=== PATIENT | female | born 1975 | race African-American/Black ===

== ENCOUNTER 2018-07-10 09:44 | Emergency (ER) | payer SELFPAY ==
[~2018-07-10] VITALS: Ht 157.5 cm; Wt 63.5 kg
--- NOTE | 2018-07-10 11:38 | PHYS DOC ---
Past Medical History Past Medical History: No Pertinent History Additional Past Medical Histor: borderline HTN Past Surgical History: , Tubal ligation Smoking: Cigarettes, 1 Pack Per Day Alcohol Use: None Drug Use: None Adult General Chief Complaint Chief Complaint: HYPERTENSION HPI HPI 42-year-old female presents to ER with complaints of mid chest tightness, shortness of air, and dizziness. Patient also has concerns of elevated blood pressure with history of borderline hypertension in the past with no daily medications. Patient reports symptoms have been ongoing for the past 1-1/2 weeks and has worsened over the past couple of days. Pt reports she has felt sweaty but uncertain if that was from hot flashes- denies fever. She reports chest tightness has been intermittent denies cough. She reports SOA but denies increase w/exertion or swelling in extremities. Pt denies any cold like sxs. Pt denies recent travel, control, or previous hx of PE/DVT. Pt denies any OTC meds for pain today. LMP 06/17/18. Review of Systems Review of Systems Constitutional: Denies fever or chills [] Eyes: Denies change in visual acuity, redness, or eye pain [] HENT: Denies nasal congestion or sore throat [] Respiratory: Denies cough or shortness of breath [] Cardiovascular: No additional information not addressed in HPI [] GI: Denies abdominal pain, nausea, vomiting, bloody stools or diarrhea [] : Denies dysuria or hematuria [] Musculoskeletal: Denies back pain or joint pain [] Integument: Denies rash or skin lesions [] Neurologic: Denies headache, focal weakness or sensory changes [] Endocrine: Denies polyuria or polydipsia [] All other systems were reviewed and found to be within normal limits, except as documented in this note. Current Medications Current Medications Current Medications Medications (Trade) Dose Ordered Sig/Ramona Start Time Stop Time Status Last Admin Dose Admin Albuterol/ Ipratropium (Duoneb) 3 ml 1X ONCE 07/10/18 12:00 07/10/18 12:01 DC 07/10/18 12:09 3 ML Prednisone (Prednisone) 40 mg 1X ONCE 07/10/18 13:15 07/10/18 13:16 DC Sodium Chloride 1,000 ml @ 1,000 mls/hr 1X ONCE 07/10/18 11:45 07/10/18 12:44 DC 07/10/18 11:46 1,000 MLS/HR Allergies Allergies Allergies Coded Allergies Type Severity Reaction Last Updated Verified No Known Drug Allergies 07/10/18 No Physical Exam Physical Exam Constitutional: Well developed, well nourished, no acute distress, non-toxic appearance. [] HENT: Normocephalic, atraumatic, bilateral ears normal, mucous membranes pink/ moist, no oral exudates, nose normal. [] Eyes: PERRLA, conjunctiva normal, no discharge. [] Neck: Normal range of motion, no tenderness, supple, no gross adenopathy Cardiovascular:Heart rate regular rhythm, no murmur [] Lungs & Thorax: Bilateral breath sounds bilateral with mild right upper lobe expiratory wheezes. Diminished air movement in bilateral bases. Respirations equal and nonlabored Abdomen: Bowel sounds normal, soft, no tenderness, no masses, no pulsatile masses. [] Skin: Warm, dry, no erythema, no rash. [] Back: No tenderness, no CVA tenderness. [] Extremities: No tenderness, no cyanosis, no clubbing, ROM intact, no edema. [] Neurologic: Alert and oriented X 3, normal motor function, normal sensory function, no focal deficits noted. [] Psychologic: Affect normal, judgement normal, mood normal. [] Current Patient Data Vital Signs Vital Signs Date Time Temp Pulse Resp B/P (MAP) Pulse Ox O2 Delivery O2 Flow Rate FiO2 07/10/18 12:09 100 Room Air 07/10/18 11:56 72 07/10/18 10:28 98.3 20 189/64 (105) 98.3 Lab Values Laboratory Tests Test 07/10/18 11:30 White Blood Count 12.0 x10^3/uL (4.0-11.0) H Red Blood Count 4.20 x10^6/uL (3.50-5.40) Hemoglobin 11.7 g/dL (12.0-15.5) L Hematocrit 35.4 % (36.0-47.0) L Mean Corpuscular Volume 84 fL (79-100) Mean Corpuscular Hemoglobin 28 pg (25-35) Mean Corpuscular Hemoglobin Concent 33 g/dL (31-37) Red Cell Distribution Width 16.9 % (11.5-14.5) H Platelet Count 305 x10^3/uL (140-400) Neutrophils (%) (Auto) 65 % (31-73) Lymphocytes (%) (Auto) 29 % (24-48) Monocytes (%) (Auto) 4 % (0-9) Eosinophils (%) (Auto) 2 % (0-3) Basophils (%) (Auto) 1 % (0-3) Neutrophils # (Auto) 7.8 x10^3uL (1.8-7.7) H Lymphocytes # (Auto) 3.5 x10^3/uL (1.0-4.8) Monocytes # (Auto) 0.5 x10^3/uL (0.0-1.1) Eosinophils # (Auto) 0.2 x10^3/uL (0.0-0.7) Basophils # (Auto) 0.1 x10^3/uL (0.0-0.2) Maternal Serum HCG Beta Subunit < 1 mIU/mL (0-5) Sodium Level 135 mmol/L (136-145) L Potassium Level 3.5 mmol/L (3.5-5.1) Chloride Level 102 mmol/L (98-107) Carbon Dioxide Level 29 mmol/L (21-32) Anion Gap 4 (6-14) L Blood Urea Nitrogen 7 mg/dL (7-20) Creatinine 0.8 mg/dL (0.6-1.0) Estimated GFR (Cockcroft-Gault) 95.6 BUN/Creatinine Ratio 9 (6-20) Glucose Level 93 mg/dL (70-99) Calcium Level 9.4 mg/dL (8.5-10.1) Magnesium Level 2.3 mg/dL (1.8-2.4) Total Bilirubin 0.3 mg/dL (0.2-1.0) Aspartate Amino Transferase (AST) 14 U/L (15-37) L Alanine Aminotransferase (ALT) 19 U/L (14-59) Alkaline Phosphatase 77 U/L (46-116) Troponin I Quantitative < 0.017 ng/mL (0.000-0.055) Total Protein 7.8 g/dL (6.4-8.2) Albumin 3.6 g/dL (3.4-5.0) Albumin/Globulin Ratio 0.9 (1.0-1.7) L Laboratory Tests 07/10/18 11:30 Laboratory Tests 07/10/18 11:30 EKG EKG [] Radiology/Procedures Radiology/Procedures PA and lateral chest radiograph. History: Chest pain. Hypertension. Comparison: None. Findings: Cardiomediastinal silhouette is within normal limits for size. Bilateral lung lee appear clear without evidence of infiltrate, effusion, or pneumothorax. 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 Impression: 1. No acute cardiopulmonary process. Electronically signed by: Jerald Blood MD (07/10/2018 12:01 PM) [facility] [place] and SIGNED BY: JERALD BLOOD MD DATE: 07/10/18 1200 Course & Med Decision Making Course & Med Decision Making Pertinent Labs and Imaging studies reviewed. (See chart for details) 1240: Discussed test results with patient when no acute findings on chest x-ray and EKG with no acute ST elevation or STEMI. Patient's troponin was less than 0.017. Patient reports following DuoNeb treatment her symptoms have improved- she reports she feels she can take a deep breath easier and chest tightness has subsided. She also reports dizziness subsided. Discussed plans for dose of prednisone while in the ER and with improved symptoms with provide prescription for 4 additional days of steroid. Smoking cessation was discussed. Will provide patient with community resources with clinics for follow-up purposes. Education provided on signs and symptoms to return to ER for an discharge instructions were discussed. Re-eval patient's right upper expiratory wheezing has subsided and she has increased air movement throughout all lung lee. Patient is in no visible distress and remains nontoxic in appearance. Patient is agreeable with discharge plan as discussed. Pt's BP 128/70 HR 68 O2 sat 99% RA. Patti Disclaimer Canon Disclaimer This electronic medical record was generated, in whole or in part, using a voice recognition dictation system. Departure Departure Impression: Primary Impression: Chest pain Additional Impressions: Elevated blood pressure reading Shortness of breath Disposition: HOME, SELF-CARE Condition: STABLE Referrals: NO PCP (PCP) Patient Instructions: Chest Pain (Nonspecific), How to Take Your Blood Pressure , [id number], Shortness of Breath, Smoking Cessation Additional Instructions: Drink plenty of fluids. Ibuprofen and/or tylenol as needed for pain control. Avoid smoking. Scripts Prednisone (PREDNISONE) 20 Mg Tablet 40 MG PO DAILY, #8 TAB Prov: ALMA COLMENARES APRN 07/10/18 Problem Qualifiers ALMA COLMENARES APRN Jul 10, 2018 11:38
[2018-07-10 11:40] LABS: BASO # 0.1 x10^3/uL (0.0-0.2); BASO % 1 % (0-3); EOS # 0.2 x10^3/uL (0.0-0.7); EOS % 2 % (0-3); HEMATOCRIT 35.4 % (36.0-47.0); HEMOGLOBIN 11.7 g/dL (12.0-15.5); LYMPH # 3.5 x10^3/uL (1.0-4.8); LYMPH % 29 % (24-48); MEAN CORPUSCULAR HEMOGLOBIN 28 pg (25-35); MEAN CORPUSCULAR HGB CONC 33 g/dL (31-37); MEAN CORPUSCULAR VOLUME 84 fL (79-100); MONO # 0.5 x10^3/uL (0.0-1.1); MONO % 4 % (0-9); NEUT # 7.8 x10^3uL (1.8-7.7); NEUT % 65 % (31-73); PLATELET COUNT 305 x10^3/uL (140-400); RED CELL DISTRIBUTION WIDTH 16.9 % (11.5-14.5)
[2018-07-10] MEDS ORDERED: IV NORMAL SALINE 1000ML BAG 1,000 ML IV ONE (11:45)
[2018-07-10 11:51] LABS: CALCIUM 9.4 mg/dL (8.5-10.1); CREATININE 0.8 mg/dL (0.6-1.0); GFR 95.6; POTASSIUM 3.5 mmol/L (3.5-5.1)
[2018-07-10 11:56] VITALS: BP 129/80
[2018-07-10 11:59] LABS: ALBUMIN 3.6 g/dL (3.4-5.0); ALBUMIN/GLOBULIN RATIO 0.9 (1.0-1.7); TOTAL BILIRUBIN 0.3 mg/dL (0.2-1.0); TOTAL PROTEIN 7.8 g/dL (6.4-8.2)
[2018-07-10] MEDS ORDERED: IPRATRPIUM/ALBUTEROL 0.5/2.5MG 3 ML NEBU. NEB ONE (12:00)
--- NOTE | 2018-07-10 12:04 | RAD ---
PA and lateral chest radiograph. History: Chest pain. Hypertension. Comparison: None. Findings: Cardiomediastinal silhouette is within normal limits for size. Bilateral lung lee appear clear without evidence of infiltrate, effusion, or pneumothorax. 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 Impression: 1. No acute cardiopulmonary process. Electronically signed by: Jerald Blood MD (07/10/2018 12:01 PM) [facility] [place]
[2018-07-10] MEDS ORDERED: PRED20TA PO (12:51)
[2018-07-10] MEDS ORDERED: predniSONE 20 MG TABLET PO ONE (13:15)
--- NOTE | 2018-07-10 18:51 | EKG ---
[facility] [address] [place] [address] Test Date: 2018-07-10 Test Time: 10:19:40 Pat Name: MADHAV OSORIO Department: Room: Gender: F Head Custodian: : 1975 Requested By: ALMA COLMENARES Order Number: [id number] Reading MD: Charles Dewitt MD Measurements Intervals Calder Rate: 78 P: 48 CT: 140 QRS: 38 QRSD: 82 T: 52 QT: 378 QTc: 434 Interpretive Statements SINUS RHYTHM ATRIAL PREMATURE COMPLEX(ES) Electronically Signed On 07-11-2018 10:48:58 CDT by Charles Dewitt MD
== END 2018-07-10 13:18 | disposition home or self-care (01) ==
LOC: ER 09:44
DX: R03.0 Elevated blood-pressure reading, without diagnosis of hypertension (principal); R07.89 Other chest pain; R42 Dizziness and giddiness; R06.02 Shortness of breath; F17.210 Nicotine dependence, cigarettes, uncomplicated; Z98.890 Other specified postprocedural states
CPT/HCPCS: 36415; 71046; 80053; 83735; 84484; 84702; 85025; 93005; 94640; 96360; 99285; J7030; J7620

== ENCOUNTER 2019-05-17 17:51 | Emergency (ER) | payer SELFPAY ==
[~2019-05-17] VITALS: Ht 157.5 cm; Wt 79.4 kg
[~2019-05-17 17:51] MED LIST: PRED20TA PO
[2019-05-17 19:00] VITALS: BP 137/83
--- NOTE | 2019-05-17 20:01 | PHYS DOC ---
Past Medical History Past Medical History: No Pertinent History, Hypertension, TIA Additional Past Medical Histor: borderline HTN Past Surgical History: , Tubal ligation Alcohol Use: None Drug Use: None Adult General Chief Complaint Chief Complaint: CHEMICAL EXPOSURE HPI HPI Patient is a 43 year old -[place] female who presents to the ED today complaining of chemical exposure to hair. Patient states a week ago she dyed her hair and used a bleach to her hair, she states a couple days ago she noted moderate burning and rashes on her scalp. She states she has washed her hair several times with minimal improvement. She states she has used his products before with no issues. Review of Systems Review of Systems Constitutional: Denies fever or chills [] Musculoskeletal: Denies back pain or joint pain [] Integument: Chemical burn/allergic reaction to hair products Neurologic: Denies headache, focal weakness or sensory changes [] All other systems were reviewed and found to be within normal limits, except as documented in this note. Allergies Allergies Allergies Coded Allergies Type Severity Reaction Last Updated Verified No Known Drug Allergies 07/10/18 No Physical Exam Physical Exam Constitutional: Well developed, well nourished, no acute distress, non-toxic appearance. [] Skin: -[place] female, scalp appears erythematous with mild rashes around the scalp no drainage. Back: No tenderness, no CVA tenderness. [] Extremities: No tenderness, no cyanosis, no clubbing, ROM intact, no edema. [] Neurologic: Alert and oriented X 3, normal motor function, normal sensory function, no focal deficits noted. [] Psychologic: Affect normal, judgement normal, mood normal. [] Current Patient Data Vital Signs Vital Signs Date Time Temp Pulse Resp B/P (MAP) Pulse Ox O2 Delivery O2 Flow Rate FiO2 05/17/19 19:00 97.9 78 16 137/83 (101) 98 Room Air 97.9 EKG EKG [] Radiology/Procedures Radiology/Procedures [] Course & Med Decision Making Course & Med Decision Making Pertinent Labs and Imaging studies reviewed. (See chart for details) This is a 43-year-old. Patient to presents to the ED today with chemical burn/allergic reaction to the scalp. Patient her hair as well as used a bleaching agent a week ago and developed a rash as well as redness throughout her scalp. Patient was encouraged to continue washing her hair with gentle baby soap/improved. Discharged on prednisone and Benadryl and Pepcid. Discouraged from using the Ciprodex that caused her this issue. Follow-up with watch adjuster in 2 weeks. Patti Disclaimer Patti Disclaimer This electronic medical record was generated, in whole or in part, using a voice recognition dictation system. Departure Departure Impression: Primary Impression: Chemical burn Additional Impression: Allergic reaction Disposition: HOME, SELF-CARE Condition: STABLE Referrals: NO PCP (PCP) NIMESH LINDQUIST MD follow up in 2 weeks Patient Instructions: Chemical Burn Additional Instructions: You were evaluated in the emergency room a chemical burn and allergic reaction to hair products. Please do not use this products anymore. Continue washing your hair several times a day with gentle baby shampoo. Follow-up with your own doctor in 2 weeks or the provided watch adjuster. Scripts Famotidine (FAMOTIDINE) 20 Mg Tablet 20 MG PO DAILY, #7 TAB Prov: CHANTAL NETTLES APRN 05/17/19 Prednisone (PREDNISONE ) 10 Mg Tablet 10 MG PO UD for PREDNISONE TAPER, #39 TAB 0 Refills Take 3 tablets by mouth twice a day for 3 days, then take 2 tablets by mouth twice a day for 3 days, then take 1 tablet by mouth twice a day for 3 days, then take 1 tablet by mouth daily x 3 days, then stop. Prov: CHANTAL NETTLES APRN 05/17/19 Problem Qualifiers Additional Impression: Allergic reaction Encounter type: initial encounter Qualified Codes: T78.40XA - Allergy, unspecified, initial encounter CHANTAL NETTLES APRN May 17, 2019 20:01
[2019-05-17] MEDS ORDERED: FAMO20TA5 PO (20:07)
[2019-05-17] MEDS ORDERED: PRED-220 PO (20:07)
== END 2019-05-17 20:13 | disposition home or self-care (01) ==
LOC: ER 17:51
DX: T65.6X1A Toxic effect of paints and dyes, not elsewhere classified, accidental (unintentional), initial encounter (principal); T49.4X1A Poisoning by keratolytics, keratoplastics, and other hair treatment drugs and preparations, accidental (unintentional), initial encounter; T20.55XA Corrosion of first degree of scalp [any part], initial encounter; T78.40XA Allergy, unspecified, initial encounter; Z86.73 Personal history of transient ischemic attack (TIA), and cerebral infarction without residual deficits; Y93.89 Activity, other specified; Y92.89 Other specified places as the place of occurrence of the external cause; Y99.8 Other external cause status
CPT/HCPCS: 99283

== ENCOUNTER 2021-03-28 17:11 | Emergency (ER) | payer SELFPAY ==
[~2021-03-28] VITALS: Ht 157.5 cm; Wt 68.1 kg
[~2021-03-28 17:11] MED LIST changes: +FAMO20TA5 PO; +PRED-220 PO
[2021-03-28 17:29] VITALS: BP 122/90
[2021-03-28] MEDS ORDERED: DEXAMETHASONE 4 MG TABLET PO ONE (17:45)
[2021-03-28] MEDS ORDERED: PRED20TA PO (17:56)
--- NOTE | 2021-03-28 17:56 | PHYS DOC ---
Past Medical History Past Medical History: No Pertinent History, Hypertension, TIA Additional Past Medical Histor: borderline HTN Past Surgical History: , Tubal ligation Smoking Status: Current Every Day Smoker Alcohol Use: None Drug Use: None General Adult EDM: Chief Complaint: SKIN PROBLEM HPI: HPI: Patient is a 46 year old [f__sex] who presents with [] Review of Systems: Review of Systems: Constitutional: Denies fever or chills. [] Eyes: Denies change in visual acuity. [] HENT: Denies nasal congestion or sore throat. [] Respiratory: Denies cough or shortness of breath. [] Cardiovascular: Denies chest pain or edema. [] GI: Denies abdominal pain, nausea, vomiting, bloody stools or diarrhea. [] : Denies dysuria. [] Musculoskeletal: Denies back pain or joint pain. [] Integument: Denies rash. [] Neurologic: Denies headache, focal weakness or sensory changes. [] Endocrine: Denies polyuria or polydipsia. [] Lymphatic: Denies swollen glands. [] Psychiatric: Denies depression or anxiety. [] Heart Score: Risk Factors: Risk Factors: DM, Current or recent (<one month) smoker, HTN, HLP, family history of CAD, obesity. Risk Scores: Score 0 - 3: 2.5% MACE over next 6 weeks - Discharge Home Score 4 - 6: 20.3% MACE over next 6 weeks - Admit for Clinical Observation Score 7 - 10: 72.7% MACE over next 6 weeks - Early Invasive Strategies Current Medications: Current Medications Medications (Trade) Dose Ordered Sig/[facility] Start Time Stop Time Status Last Admin Dose Admin Dexamethasone (Decadron) 10 mg 1X ONCE 03/28/21 17:45 03/28/21 17:46 DC Allergies: Allergies: Allergies Coded Allergies Type Severity Reaction Last Updated Verified No Known Drug Allergies 07/10/18 No Physical Exam: PE: Constitutional: Well developed, well nourished, no acute distress, non-toxic appearance. [] HENT: Normocephalic, atraumatic, bilateral external ears normal, oropharynx moist, no oral exudates, nose normal. [] Eyes: PERRLA, EOMI, conjunctiva normal, no discharge. [] Neck: Normal range of motion, no tenderness, supple, no stridor. [] Cardiovascular:Heart rate regular rhythm, no murmur [] Lungs & Thorax: Bilateral breath sounds clear to auscultation [] Abdomen: Bowel sounds normal, soft, no tenderness, no masses, no pulsatile masses. [] Skin: Warm, dry, no erythema, no rash. [] Back: No tenderness, no CVA tenderness. [] Extremities: No tenderness, no cyanosis, no clubbing, ROM intact, no edema. [] Neurologic: Alert and oriented X 3, normal motor function, normal sensory function, no focal deficits noted. [] Psychologic: Affect normal, judgement normal, mood normal. [] Current Patient Data: Vital Signs: Vital Signs Date Time Temp Pulse Resp B/P (MAP) Pulse Ox O2 Delivery O2 Flow Rate FiO2 03/28/21 17:29 99.0 87 18 122/90 (101) 97 Room Air 99.0 EKG: EKG: [] Radiology/Procedures: Radiology/Procedures: [] Course & Med Decision Making: Course & Med Decision Making Pertinent Labs and Imaging studies reviewed. (See chart for details) [] Dragon Disclaimer: DragGlobant Disclaimer: This electronic medical record was generated, in whole or in part, using a voice recognition dictation system. Departure Departure Impression: Primary Impression: Allergic reaction Qualified Codes: T78.40XA - Allergy, unspecified, initial encounter Additional Impression: Chemical burn Disposition: HOME / SELF CARE / HOMELESS Condition: STABLE Referrals: NO PCP (PCP) Patient Instructions: Chemical Burn, [id number], Contact Dermatitis, [id number] Additional Instructions: Do not soak your wound. You may shower. Clean wound daily with soap and water. Change dressing 2 times daily. Use over the counter antibiotic ointment. Scripts Prednisone (PREDNISONE) 20 Mg Tablet 2 TAB PO DAILY, #8 TAB Start this prescription tomorrow, Wednesday03/29/21 Prov: JN MCDONNELL DO 03/28/21 JN MCDONNELL DO March 28, 2021 17:56
== END 2021-03-28 18:21 | disposition home or self-care (01) ==
LOC: ER 17:11
DX: T78.40XA Allergy, unspecified, initial encounter (principal); I10 Essential (primary) hypertension; Z86.73 Personal history of transient ischemic attack (TIA), and cerebral infarction without residual deficits; Z98.51 Tubal ligation status; X58.XXXA Exposure to other specified factors, initial encounter
CPT/HCPCS: 99283